=== PATIENT | male | born 1960 | race African-American/Black ===

== ENCOUNTER 2017-03-13 18:21 | Emergency (ER) | payer MEDICAID, MEDICARE ==
[~2017-03-13] VITALS: Ht 190.5 cm; Wt 83.9 kg
[~2017-03-13 18:21] MED LIST: ALBUTEROL SULF8.5 GM INH; AZITHROMYCIN250 MG ORAL; BENTYL10 MG ORAL; CIPROFLOXACIN500 M2 ORAL; LEVEMIR100 UNIT/1 SUBQ; METRONIDAZOLE500 MG ORAL; PROMETHAZINE-D118 ML ORAL; ZOFRAN ODT4 MG ORAL
[2017-03-13 20:51] LABS: ALANINE AMINOTRANSFERASE 35 U/L (3-41); ALBUMIN/GLOBULIN RATIO 0.9 (1.0-2.7); ANION GAP 10 (5-15); ASPARTATE AMINO TRANSFERASE 45 U/L (5-40); CALCIUM 9.2 mg/dL (8.6-10.2); CARBON DIOXIDE 28 mEQ/L (20-30); CHLORIDE 103 mEQ/L (98-107); CREATININE 1.1 mg/dL (0.7-1.2); GLOMERULAR FILTRATION RATE > 60 mL/min (>60); HEMOLYSIS 33; POTASSIUM 4.6 mEQ/L (3.4-4.9); SODIUM 141 mEQ/L (135-145); TOTAL PROTEIN 6.9 g/dL (6.6-8.7)
[2017-03-13 21:13] LABS: APPEARANCE,URINE SLIGHTLY CLOUDY; KETONES,URINE NEGATIVE (NEGATIVE); LEUKOCYTE ESTERASE ,URINE 2+ (NEGATIVE); MEAN CORPUSCULAR HEMOGLOBIN 31.4 PG (27.0-31.0); MEAN CORPUSCULAR HGB CONC 34.7 G/DL (32.0-36.0); MEAN CORPUSCULAR VOLUME 90 FL (80-99); MEAN PLATELET VOLUME 6.4 FL (6.5-10.1); NITRITE,URINE NEGATIVE (NEGATIVE); PH,URINE 6 (4.5-8.0); PLATELET COUNT 64 K/UL (150-450); PROTEIN,URINE NEGATIVE (NEGATIVE); RED BLOOD COUNT 4.46 M/UL (4.70-6.10); RED CELL DISTRIBUTION WIDTH 13.2 % (11.6-14.8); UROBILINOGEN,URINE 4 MG/DL (0.0-1.0); WHITE BLOOD COUNT 3.5 K/UL (4.8-10.8)
[2017-03-13 21:17] LABS: BILIRUBIN,DIRECT 0.9 mg/dL (0.1-0.3)
[2017-03-13 21:19] LABS: NEUTROPHILS % (MANUAL) 50 % (45-75); TOTAL CELLS COUNTED 100
[2017-03-13 21:20] LABS: BASOPHILS % (MANUAL) 0 % (0-2); EOSINOPHILS % (MANUAL) 3 % (0-3); LYMPHOCYTES % (MANUAL) 35 % (20-45); PLATELET ESTIMATE DECREASED; PLATELET MORPHOLOGY NORMAL
[2017-03-13 21:21] LABS: RBC,URINE 0-2 /HPF (0 - 0)
[2017-03-13 21:25] LABS: BACTERIA,URINE MODERATE /HPF; ICTOTEST NEGATIVE; SQUAMOUS EPITHELIAL CELL,UR FEW /LPF (NONE/OCC); WBC,URINE 30-40 /HPF (0 - 0)
[2017-03-13 21:28] LABS: BAND NEUTROPHILS % (MANUAL) 0 % (0-8)
[2017-03-13] MEDS ORDERED: CIPROFLOXACIN500 M2 ORAL (21:48)
[2017-03-13 22:15] VITALS: BP 120/88
--- NOTE | 2017-03-13 22:36 | Emergency Room Report ---
History of Present Illness General Chief Complaint: General Complaint Source: Family Member Present Illness Allergies: Coded Allergies: No Known Allergies (Unverified , 01/09/12) Patient History Reviewed Nursing Documentation: PMH: Agreed, PSxH: Agreed Nursing Documentation-PMH Hx Diabetes: Yes Review of Systems All Other Systems: negative except mentioned in HPI Physical Exam Vital Signs Date Time Temp Pulse Resp B/P (MAP) Pulse Ox O2 Delivery O2 Flow Rate FiO2 03/13/17 18:24 97.9 101 18 111/74 98 Room Air Sp02 EP Interpretation: reviewed, normal General Appearance: no apparent distress, alert, GCS 15, non-toxic Head: normocephalic, atraumatic Eyes: bilateral eye normal inspection, bilateral eye PERRL ENT: hearing grossly normal, normal pharynx, no angioedema, normal voice Medical Decision Making PA Attestation Dr. Layne is my supervising physician. Patient management was discussed with my supervising physician Diagnostic Impression: Primary Impression: Urinary tract infection Qualified Codes: N30.00 - Acute cystitis without hematuria ER Course Differential diagnosis considered but not limited to: UTI, vaginitis, pyelonephritis, pyelonephrosis, PID, ectopic EKG Diagnostic Results EP Interpretation: NSR Rate: normal Rhythm: NSR - 82 ST Segments: no acute changes ASA given to the pt in ED: No PA Scribe Text EKG was reviewed and read with my supervising physician. No acute ST segment changes are seen. Normal rate and rhythm. No acute changes. Last Vital Signs Date Time Temp Pulse Resp B/P (MAP) Pulse Ox O2 Delivery O2 Flow Rate FiO2 03/13/17 22:15 88 18 128/88 99 Room Air 03/13/17 22:15 98.8 Status: improved Disposition: HOME, SELF-CARE Condition: Improved Scripts Ciprofloxacin Hcl* (CIPROFLOXACIN HCL*) 500 Mg Tablet 500 MG ORAL EVERY 12 HOURS, #14 TAB 0 Refills Prov: CHERIE LOUISE 03/13/17 Patient Instructions: Urinary Tract Infection Additional Instructions: I discussed my findings with the patient. All questions and concerns have been answered. Treatment and medication compliance have been addressed. I advised the patient that they need to follow up with primary doctor as soon as possible. Return to ED if symptoms worsen, new symptoms arise, or if needed for any reason. Patient verbalized understanding of discharge instructions. I have provided the lab results from this visit. Please give them to your primary doctor. CHERIE LOUISE Mar 13, 2017 22:36
--- NOTE | 2017-03-16 16:36 | Cardiology Report ---
APPROVED REPORT EKG Measurement Heart [id number] Normal sinus rhythm Normal ECG
== END 2017-03-13 22:15 | disposition home or self-care (01) ==
LOC: EMR 20:03
DX: N30.00 Acute cystitis without hematuria (principal); E11.9 Type 2 diabetes mellitus without complications
CPT/HCPCS: 36415; 80053; 80300; 81003; 82248; 82962; 85007; 85025; 87086; 93005; 99284

== ENCOUNTER 2017-07-04 16:22 | Emergency (ER) | payer MEDICARE, OTHER ==
[~2017-07-04] VITALS: Ht 193 cm; Wt 83.9 kg
[2017-07-04] MEDS ORDERED: UNOBMED (17:14)
[2017-07-04] MEDS ORDERED: TRUVADA 200 MG1 EAC1 ORAL (17:14)
[2017-07-04] MEDS ORDERED: Acetaminophen 500mg (ES) tab ORAL ONE (17:45)
[2017-07-04] MEDS ORDERED: NORCO 5-325 TA1 EACH ORAL (18:49)
[2017-07-04 19:18] VITALS: BP 108/30
--- NOTE | 2017-07-05 09:43 | Emergency Room Report ---
History of Present Illness General Chief Complaint: Lower Extremity Injury Source: Patient Present Illness HPI Presented [id number] male who presented after increased left foot pain. Patient gradual onset of symptoms. Patient stated he had injured his left foot. He had been ambulatory but had noticed increased pain and swelling to the lateral aspect of his left foot. He denies any numbness or tingling. He states that he is taking medications for HIV. He denies any recent fever. Allergies: Coded Allergies: No Known Allergies (Unverified , 01/09/12) Patient History Reviewed Nursing Documentation: PMH: Agreed, PSxH: Agreed Nursing Documentation-PMH Hx Diabetes: Yes Review of Systems All Other Systems: negative except mentioned in HPI Physical Exam Vital Signs Date Time Temp Pulse Resp B/P (MAP) Pulse Ox O2 Delivery O2 Flow Rate FiO2 07/04/17 17:09 97.7 89 19 108/30 97 Room Air General Appearance: well appearing, no apparent distress, alert, GCS 15 Head: normocephalic, atraumatic ENT: hearing grossly normal, normal voice Neck: full range of motion, supple Respiratory: no respiratory distress, speaking full sentences Cardiovascular #1: normal inspection, regular rate, rhythm Gastrointestinal: normal inspection Musculoskeletal: back normal, no calf tenderness, swelling - swelling and tenderness to left foot, no erythema or bruising noted Neurologic: normal inspection, alert, oriented x3, normal gait Psychiatric: mood/affect normal Skin: no rash Medical Decision Making Diagnostic Impression: Primary Impression: Foot fracture, left ER Course Patient presented for foot pain. Differential diagnoses include was was not limited to cellulitis, foreign body, fracture, plantar fasciitis, vascular insufficiency, sprain. X-ray imaging of the left foot previous interpreted by me showed a fracture to the fifth metatarsal. The patient was placed in a posterior splint. He is advised followup with orthopedics. He was given prescription for pain medications.The patient is advised to follow up with primary care doctor in 1-2 days for orthopedic referral. Patient is advised to return if any worsening condition or if any changes in status that are concerning. This report is dictated with [employer] agriculture manager software which may occasionally lead to discrepancies related to use of this software. Last Vital Signs Date Time Temp Pulse Resp B/P (MAP) Pulse Ox O2 Delivery O2 Flow Rate FiO2 07/04/17 19:18 97.7 78 19 108/30 97 Room Air Status: improved Disposition: HOME, SELF-CARE Condition: Stable Scripts Hydrocodone Bit/Acetaminophen 5-325* (NORCO 5-325*) 1 Each Tablet 1 TAB ORAL Q6H Y for For Pain, #20 TAB 0 Refills Prov: Navin Estes 07/04/17 Patient Instructions: Metatarsal Fracture Navin Estes Jul 05, 2017 09:43
--- NOTE | 2017-07-05 12:26 | Diagnostic Imaging Report ---
Indication: Pain Comparison: None Findings: 3 views of the left foot were obtained. There is a fracture at the base of the fifth metatarsal, nondisplaced. Bones are osteopenic. IMPRESSION: Suspected acute fracture base of the fifth metatarsal. Please correlate clinically.
== END 2017-07-04 19:18 | disposition home or self-care (01) ==
LOC: EMR 17:48
DX: S92.355A Nondisplaced fracture of fifth metatarsal bone, left foot, initial encounter for closed fracture (principal); W19.XXXA Unspecified fall, initial encounter; Y92.480 Sidewalk as the place of occurrence of the external cause
CPT/HCPCS: 99283

== ENCOUNTER 2017-09-06 | Emergency (ER) | payer MEDICARE, OTHER ==
[~2017-09-06] VITALS: Ht 190.5 cm; Wt 83.9 kg
[~2017-09-06] MED LIST changes: +NORCO 5-325 TA1 EACH ORAL; +TRUVADA 200 MG1 EAC1 ORAL; +UNOBMED
--- NOTE | 2017-09-06 00:34 | Emergency Room Report ---
History of Present Illness General Chief Complaint: Lower Extremity Injury Source: Patient Present Illness HPI Is a 56-year-old male with a previous left foot fracture in June. He presents with chief complaint of left foot injury and pain. He said 2 to 3 days ago he stepped down and felt pain shooting up his ankle. He said is some swelling laterally. Swelling went down out. Pain is 7/10. No trauma. Pain is throbbing in nature. No radiation. Allergies: Coded Allergies: No Known Allergies (Unverified , 01/09/12) Patient History Past Medical History: see triage record, old chart reviewed Past Surgical History: other Pertinent Family History: none Social History: Denies: drug use Immunizations: other Reviewed Nursing Documentation: PMH: Agreed, PSxH: Agreed Nursing Documentation-PMH Hx Diabetes: Yes Review of Systems Eye: Denies: eye pain, blurred vision ENT: Denies: ear pain, nose congestion, throat swelling Respiratory: Denies: cough, shortness of breath Cardiovascular: Denies: chest pain, palpitations Gastrointestinal: Denies: abdominal pain, diarrhea, nausea, vomiting Musculoskeletal: Reports: joint pain, Denies: back pain Skin: Denies: rash Neurological: Denies: headache, numbness Endocrine: Denies: increased thirst, increased urine Hematologic/Lymphatic: Denies: easy bruising All Other Systems: negative except mentioned in HPI Physical Exam Vital Signs Date Time Temp Pulse Resp B/P (MAP) Pulse Ox O2 Delivery O2 Flow Rate FiO2 09/06/17 00:08 98.0 96 18 127/84 97 Room Air 98.1 vitals normal Sp02 EP Interpretation: reviewed, normal General Appearance: well appearing, no apparent distress, alert Head: normocephalic, atraumatic Eyes: bilateral eye PERRL, bilateral eye EOMI ENT: hearing grossly normal, normal pharynx Neck: full range of motion, supple, no meningismus Respiratory: chest non-tender, lungs clear, normal breath sounds Cardiovascular #1: regular rate, rhythm, no murmur Gastrointestinal: normal bowel sounds, non tender, no mass, no organomegaly, no bruit, non-distended Musculoskeletal: back normal, gait/station normal, normal range of motion, other - Left foot: His flat-footed. Tenderness over the base of the fifth metatarsal. No edema. Ankle stable. Sensation normal. Psychiatric: mood/affect normal Skin: warm/dry Procedures Splinting Splinting : Consent: Verbal Location: Left ankle Pre-Made Type: YASSINE wrap Pre-Proc Neuro Vasc Exam: normal Post-Proc Neuro Vasc Exam: normal Patient Tolerated: Well Complications: None Medical Decision Making Diagnostic Impression: Primary Impression: Left ankle sprain Qualified Codes: S93.402A - Sprain of unspecified ligament of left ankle, initial encounter ER Course Patient with a left ankle sprain. No fracture dislocation. We'll discharge home after splinting. Other X-Ray Diagnostic Results Other X-Ray Diagnostic Results : X-Ray ordered: Left ankle x-r # of Views/Limited Vs Complete: 3 View Indication: Pain EP Interpretation: Yes Interpretation: no dislocation, no soft tissue swelling, no fractures, other - osteopenia. old 5th MT bone frx. Impression: No acute disease Electronically Signed by: Al Arevalo MD Last Vital Signs Date Time Temp Pulse Resp B/P (MAP) Pulse Ox O2 Delivery O2 Flow Rate FiO2 09/06/17 00:08 98.0 96 18 127/84 97 Room Air 98.1 Status: improved Disposition: HOME, SELF-CARE Condition: Stable Scripts Ibuprofen* (MOTRIN*) 600 Mg Tablet 600 MG ORAL THREE TIMES A DAY, #30 TAB 0 Refills Prov: AL AREVALO M.D. 09/06/17 Patient Instructions: Ankle Sprain Additional Instructions: Followup with your DrRichard in 7 days. Return if worse. AL AREVALO M.D. Sep 06, 2017 00:34
[2017-09-06] MEDS ORDERED: IBUPROFEN600 MG ORAL (01:02)
[2017-09-06 01:10] VITALS: BP 127/84
--- NOTE | 2017-09-06 10:07 | Diagnostic Imaging Report ---
Indication: Pain Comparison: None Findings: 3 views of the left foot were obtained. No acute fractures, malalignment, erosions or periostitis are identified. Bones are osteopenic. There is narrowing of the first MTP joint with marginal spur formation. Soft tissues are unremarkable. Impression: No acute findings
== END 2017-09-06 07:00 | disposition home or self-care (01) ==
LOC: EMR 00:39
DX: S93.402A Sprain of unspecified ligament of left ankle, initial encounter (principal); W19.XXXA Unspecified fall, initial encounter; Y92.9 Unspecified place or not applicable; E11.9 Type 2 diabetes mellitus without complications
CPT/HCPCS: 29540; 99283

== ENCOUNTER 2017-11-30 23:54 | Emergency (ER) | payer MEDICARE, OTHER ==
[~2017-11-30] VITALS: Ht 190.5 cm; Wt 83.9 kg
[~2017-11-30 23:54] MED LIST changes: +IBUPROFEN600 MG ORAL
[2017-12-01] MEDS ORDERED: TRUVADA 200 MG1 EAC1 ORAL (00:04)
[2017-12-01] MEDS ORDERED: NOVOLIN R100 UNIT/1 SUBQ (00:04)
[2017-12-01] MEDS ORDERED: METFORMIN HCL500 M1 ORAL (00:04)
--- NOTE | 2017-12-01 00:23 | Emergency Room Report ---
History of Present Illness General Chief Complaint: Generalized Weakness Source: Patient Present Illness HPI Patient is a 56-year-old male who presented after increased abdominal discomfort as well as increased abdominal pain. Patient gradual onset of symptoms. Associated the loose stools. He reports prior history of HIV and states that he's been having increased gas and bloating. The patient states is also type II diabetic. He states he does not regularly check his blood sugars. Allergies: Coded Allergies: No Known Allergies (Unverified , 12/01/17) Patient History Past Medical History: see triage record Reviewed Nursing Documentation: PMH: Agreed; PSxH: Agreed Nursing Documentation-PMH Hx Diabetes: Yes Review of Systems All Other Systems: negative except mentioned in HPI Physical Exam Vital Signs Date Time Temp Pulse Resp B/P (MAP) Pulse Ox O2 Delivery O2 Flow Rate FiO2 11/30/17 23:57 98.4 104 16 118/70 96 Room Air 98.4 Sp02 EP Interpretation: reviewed, normal General Appearance: normal inspection, well appearing, no apparent distress, alert, GCS 15, thin, Chronically Ill Head: atraumatic ENT: normal ENT inspection, hearing grossly normal, normal voice Neck: normal inspection, full range of motion, supple, no bony tend Respiratory: normal inspection, lungs clear, normal breath sounds, no respiratory distress, no retraction, no wheezing Cardiovascular #1: regular rate, rhythm, no edema Gastrointestinal: normal inspection, normal bowel sounds, non tender, soft, no guarding, no hernia Genitourinary: no CVA tenderness Musculoskeletal: normal inspection, back normal, normal range of motion Neurologic: normal inspection, alert, oriented x3, responsive, lemon grower III-XII nml as tested, speech normal Psychiatric: normal inspection, judgement/insight normal, mood/affect normal Skin: normal inspection, normal color, no rash Medical Decision Making Diagnostic Impression: Primary Impression: Proctocolitis ER Course Patient presented for abdominal pain. Differential diagnoses included ischemic bowel, appendicitis, perforated viscus, abdominal aortic aneurysm, inferior myocardial infarction, viral gastroenteritis. Because of complexity of patient' s case laboratory testing and imaging studies were ordered. CT imaging read by radiology showed evidence of proctocolitis. The patient was given IV fluids. He was given pain medications with improvement.The patient was given prescription for antibiotics. Patient was offered admission however he stated he wanted to go home.The patient is advised to follow up with primary care doctor in 1-2 days. Patient is advised to return if any worsening condition or if any changes in status that are concerning. This report is dictated with [employer] oven worker software which may occasionally lead to discrepancies related to use of this software. Labs Test 12/01/17 00:43 12/01/17 01:23 White Blood Count 3.5 K/UL (4.8-10.8) Red Blood Count 4.69 M/UL (4.70-6.10) Hemoglobin 14.2 G/DL (14.2-18.0) Hematocrit 40.7 % (42.0-52.0) Mean Corpuscular Volume 87 FL (80-99) Mean Corpuscular Hemoglobin 30.3 PG (27.0-31.0) Mean Corpuscular Hemoglobin Concent 34.9 G/DL (32.0-36.0) Red Cell Distribution Width 11.9 % (11.6-14.8) Platelet Count 81 K/UL (150-450) Mean Platelet Volume 6.6 FL (6.5-10.1) Neutrophils (%) (Auto) % (45.0-75.0) Lymphocytes (%) (Auto) % (20.0-45.0) Monocytes (%) (Auto) % (1.0-10.0) Eosinophils (%) (Auto) % (0.0-3.0) Basophils (%) (Auto) % (0.0-2.0) Prothrombin Time 12.1 SEC (9.30-11.50) Prothromb Time International Ratio 1.2 (0.9-1.1) Activated Partial Thromboplast Time 32 SEC (23-33) Sodium Level 133 MMOL/L (136-145) Potassium Level 4.1 MMOL/L (3.5-5.1) Chloride Level 101 MMOL/L (98-107) Carbon Dioxide Level 28 MMOL/L (21-32) Anion Gap 4 mmol/L (5-15) Blood Urea Nitrogen 11 mg/dL (7-18) Creatinine 1.4 MG/DL (0.55-1.30) Estimat Glomerular Filtration Rate > 60 mL/min (>60) Glucose Level 380 MG/DL (74-106) Calcium Level 8.6 MG/DL (8.5-10.1) Total Bilirubin 1.3 MG/DL (0.2-1.0) Direct Bilirubin 0.6 MG/DL (0.0-0.3) Aspartate Amino Transf (AST/SGOT) 46 U/L (15-37) Alanine Aminotransferase (ALT/SGPT) 52 U/L (12-78) Alkaline Phosphatase 216 U/L (46-116) Total Protein 7.1 G/DL (6.4-8.2) Albumin 2.7 G/DL (3.4-5.0) Globulin 4.4 g/dL Albumin/Globulin Ratio 0.6 (1.0-2.7) Lipase 271 U/L (73-393) Urine Color Pale yellow Urine Appearance Clear Urine pH 6.5 (4.5-8.0) Urine Specific Willard 1.005 (1.005-1.035) Urine Protein Negative (NEGATIVE) Urine Glucose (UA) 4+ (NEGATIVE) Urine Ketones Negative (NEGATIVE) Urine Occult Blood Negative (NEGATIVE) Urine Nitrite Negative (NEGATIVE) Urine Bilirubin Negative (NEGATIVE) Urine Urobilinogen 4 MG/DL (0.0-1.0) Urine Leukocyte Esterase Negative (NEGATIVE) Last Vital Signs Date Time Temp Pulse Resp B/P (MAP) Pulse Ox O2 Delivery O2 Flow Rate FiO2 11/30/17 23:57 98.4 104 16 118/70 96 Room Air 98.4 Status: improved Disposition: HOME, SELF-CARE Condition: Stable Scripts Dicyclomine Hcl* (DICYCLOMINE HCL*) 10 Mg Capsule 10 MG PO QID, #30 CAP Prov: Navin Estes MD 12/01/17 Ciprofloxacin Hcl* (CIPROFLOXACIN HCL*) 500 Mg Tablet 500 MG ORAL Q12H, #14 TAB 0 Refills Prov: Navin Estes MD 12/01/17 Metronidazole* (FLAGYL*) 500 Mg Tablet 500 MG ORAL BID, #14 TAB Prov: Navin Estes MD 12/01/17 Navin Estes MD December 01, 2017 00:23
[2017-12-01 01:08] LABS: HEMATOCRIT 40.7 % (42.0-52.0); HEMOGLOBIN 14.2 G/DL (14.2-18.0); MEAN CORPUSCULAR VOLUME 87 FL (80-99); PLATELET COUNT 81 K/UL (150-450); RED BLOOD COUNT 4.69 M/UL (4.70-6.10); RED CELL DISTRIBUTION WIDTH 11.9 % (11.6-14.8); WHITE BLOOD COUNT 3.5 K/UL (4.8-10.8)
[2017-12-01 01:13] LABS: ANION GAP 4 mmol/L (5-15); BLOOD UREA NITROGEN 11 mg/dL (7-18); CALCIUM 8.6 MG/DL (8.5-10.1); CARBON DIOXIDE 28 MMOL/L (21-32); CHLORIDE 101 MMOL/L (98-107); CREATININE 1.4 MG/DL (0.55-1.30); POTASSIUM 4.1 MMOL/L (3.5-5.1); SODIUM 133 MMOL/L (136-145)
[2017-12-01 01:15] LABS: INR 1.2 (0.9-1.1)
[2017-12-01 01:20] VITALS: BP 127/76
[2017-12-01 01:23] LABS: ALANINE AMINOTRANSFERASE 52 U/L (12-78); ALBUMIN 2.7 G/DL (3.4-5.0); ALBUMIN/GLOBULIN RATIO 0.6 (1.0-2.7); ALKALINE PHOSPHATASE 216 U/L (46-116); ASPARTATE AMINO TRANSFERASE 46 U/L (15-37); BILIRUBIN,TOTAL 1.3 MG/DL (0.2-1.0)
[2017-12-01 01:33] LABS: BILIRUBIN,DIRECT 0.6 MG/DL (0.0-0.3)
[2017-12-01 01:37] LABS: APPEARANCE,URINE CLEAR; BILIRUBIN, URINE NEGATIVE (NEGATIVE); COLOR,URINE PALE YELLOW; GLUCOSE, URINE (UA) 4+ (NEGATIVE); KETONES,URINE NEGATIVE (NEGATIVE); LEUKOCYTE ESTERASE ,URINE NEGATIVE (NEGATIVE); NITRITE,URINE NEGATIVE (NEGATIVE); PH,URINE 6.5 (4.5-8.0); PROTEIN,URINE NEGATIVE (NEGATIVE); UROBILINOGEN,URINE 4 MG/DL (0.0-1.0)
[2017-12-01] MEDS ORDERED: Isovue-300 100ml vial INJ PRN (02:30)
[2017-12-01] MEDS ORDERED: METRONIDAZOLE500 MG ORAL (03:57)
[2017-12-01] MEDS ORDERED: CIPROFLOXACIN500 M2 ORAL (03:57)
[2017-12-01] MEDS ORDERED: DICYCLOMINE HCL10 MG PO (03:57)
[2017-12-01 04:15] VITALS: BP 119/68
--- NOTE | 2017-12-01 09:42 | Diagnostic Imaging Report ---
Indication: Abdominal pain Technique: Continuous helical transaxial imaging of the abdomen and pelvis was obtained from the lung bases to the pubic symphysis during intravenous contrast administration. Coronal 2-D reformats were also obtained. Study obtained in a Siemens sensation [address] Automatic Exposure Control was utilized. Total Dose length Product (DLP): 711.[address] Dose Index Volume (CTDIvol): 12.77 mGy Comparison: 10/23/2015 Findings: There is posterior basilar atelectasis demonstrated. Pneumonia is not excluded. Correlate clinically. The spleen is markedly enlarged. There is suggestion of portosystemic varices. The splenic vein is enlarged and tortuous. There is a spontaneous splenorenal shunt. These are all signs of portal hypertension. There is nodularity of the liver. Gallstones are present. There is a moderate amount of formed stool distending the colon and rectum. There is thickening of the wall of the sigmoid colon and rectum. The urinary bladder is unremarkable. There is no ascites. Aorta is mildly calcified. The appendix is normal. IMPRESSION: Chronic liver disease/cirrhosis with stigmata of portal hypertension including splenomegaly and portosystemic varices. Gallstones. Moderate fecal impaction and evidence of proctocolitis. Other incidental findings as above [facility] has communicated the preliminary results to the Emergency Department. Their findings are largely concordant with this report. The CT scanner at [facility] is accredited by the [employer] and the scans are performed using dose optimization techniques as appropriate to a performed exam including Automatic Exposure control.
== END 2017-12-01 04:15 | disposition home or self-care (01) ==
LOC: EMR 12-01 00:33
DX: K51.30 Ulcerative (chronic) rectosigmoiditis without complications (principal); E11.9 Type 2 diabetes mellitus without complications; K80.20 Calculus of gallbladder without cholecystitis without obstruction; K74.60 Unspecified cirrhosis of liver; K76.6 Portal hypertension; R16.1 Splenomegaly, not elsewhere classified; K56.41 Fecal impaction
CPT/HCPCS: 36415; 74177; 80053; 81003; 82248; 82962; 83690; 85025; 85610; 85730; 96374; 96375; 99284; J2405; Q9967

== ENCOUNTER 2018-08-18 00:55 | Emergency (ER) | payer MEDICARE, OTHER ==
[~2018-08-18] VITALS: Ht 188 cm; Wt 83.9 kg
[~2018-08-18 00:55] MED LIST changes: +DICYCLOMINE HCL10 MG PO; +METFORMIN HCL500 M1 ORAL; +NOVOLIN R100 UNIT/1 SUBQ
[2018-08-18] MEDS ORDERED: IBUPROFEN600 MG ORAL (01:52)
[2018-08-18 02:00] VITALS: BP 117/73
--- NOTE | 2018-08-18 04:42 | Emergency Room Report ---
History of Present Illness General Chief Complaint: Lower Extremity Injury Source: Patient Present Illness HPI 57-year-old male presents ED for evaluation. Presenting with big toe pain and bruising. States he accidentally kicked a door yesterday. Pain is throbbing, 10 out of 10, nonradiating. Denies any other injuries. Able to bear weight. No other aggravating relieving factors. Denies any other associated symptoms Allergies: Coded Allergies: No Known Allergies (Unverified , 12/01/17) Patient History Past Medical History: DM Past Surgical History: none Pertinent Family History: none Social History: Denies: smoking, alcohol use, drug use Immunizations: UTD Reviewed Nursing Documentation: PMH: Agreed; PSxH: Agreed Nursing Documentation-PMH Past Medical History: No History, Except For Hx Diabetes: Yes Review of Systems All Other Systems: negative except mentioned in HPI Physical Exam Vital Signs Date Time Temp Pulse Resp B/P (MAP) Pulse Ox O2 Delivery O2 Flow Rate FiO2 08/18/18 01:04 98.2 122 16 117/73 98 Room Air Sp02 EP Interpretation: reviewed, normal General Appearance: no apparent distress, alert, GCS 15, non-toxic Head: normocephalic Eyes: bilateral eye normal inspection, bilateral eye PERRL ENT: normal ENT inspection Neck: normal inspection Respiratory: normal inspection Cardiovascular #1: normal inspection Gastrointestinal: normal inspection Rectal: deferred Genitourinary: no CVA tenderness Musculoskeletal: tender - bruising, TTP R big toe Neurologic: alert, oriented x3, responsive, motor strength/tone normal, sensory intact, speech normal Psychiatric: normal inspection Skin: normal inspection Lymphatic: normal inspection Procedures Splinting Splinting : Consent: Verbal Pre-Made Type: brandy tape Splint: cast shoe Pre-Proc Neuro Vasc Exam: normal Post-Proc Neuro Vasc Exam: normal Patient Tolerated: Well Complications: None Medical Decision Making Diagnostic Impression: Primary Impression: Toe fracture Qualified Codes: S92.424A - Nondisplaced fracture of distal phalanx of right great toe, initial encounter for closed fracture ER Course Hospital Course 57-year-old M presents to ED complaining of R big toe pain/bruising Differential diagnoses include: Fracture, dislocation, sprain, contusion Clinical course Patient placed on stretcher. After initial history and physical, I ordered pain medications and Xrays of R foot Xrays prelim read shows evidence of fracture to the distal aspect of the right big toe. Nondisplaced. Brandy taped. Placed in cast shoe. Discussed findings with patient. Safe for discharge or close outpatient follow-up. We'll provide ortho referrals Diagnosis - toe fracture Stable and discharged to home with prescription for Motrin. apply ice, keep elevated. weight bear as tolerated. Followup with ortho. Return to ED if symptoms recur or worsen Other X-Ray Diagnostic Results Other X-Ray Diagnostic Results : X-Ray ordered: R foot # of Views/Limited Vs Complete: 3 View Indication: Pain EP Interpretation: Yes Interpretation: no dislocation, no soft tissue swelling, other - fx distal R big toe Impression: Other - fx Electronically Signed by: Electronically signed by Abelardo Durán MD Last Vital Signs Date Time Temp Pulse Resp B/P (MAP) Pulse Ox O2 Delivery O2 Flow Rate FiO2 08/18/18 02:00 98.2 16 117/73 98 Room Air 08/18/18 01:04 122 Status: improved Disposition: HOME, SELF-CARE Condition: Stable Scripts Ibuprofen* (MOTRIN*) 600 Mg Tablet 600 MG ORAL Q8H PRN for For Pain, #30 TAB 0 Refills Prov: Abelardo Durán MD 08/18/18 Patient Instructions: Toe Fracture, [id number] Additional Instructions: Orthopedic urgent care: [address] [facility] [address] [place] [address] email: ana Abelardo Durán MD Aug 18, 2018 04:42
--- NOTE | 2018-08-18 10:05 | Diagnostic Imaging Report ---
Indication: Foot Pain Comparison: None Findings: 3 views of the right foot were obtained. No acute fractures, malalignment, erosions or periostitis are identified. Bones are osteopenic. Soft tissues are unremarkable. Impression: No acute findings.
== END 2018-08-18 02:00 | disposition home or self-care (01) ==
LOC: EMR 01:24
DX: S92.424A Nondisplaced fracture of distal phalanx of right great toe, initial encounter for closed fracture (principal); W22.8XXA Striking against or struck by other objects, initial encounter; Y92.89 Other specified places as the place of occurrence of the external cause; E11.9 Type 2 diabetes mellitus without complications
CPT/HCPCS: 99283

== ENCOUNTER 2018-09-19 17:16 | Emergency (ER) | payer MEDICARE, OTHER ==
[~2018-09-19] VITALS: Ht 188 cm; Wt 79.4 kg
[2018-09-19 17:19] VITALS: BP 124/85
--- NOTE | 2018-09-19 17:29 | NUR ---
ED Nurse Note: Pt came in due to abd pain wtih Nausea, Vomiting and diarrhea x4 days. Denies blood in the stool but with decreased appetite. Pt is AAO x4, ambulatory with unlabored breathing.
[2018-09-19] MEDS ORDERED: Morphine Sulfate 4mg/ml Inj (IV USE ONLY) IVP ONE (18:00)
--- NOTE | 2018-09-19 18:13 | NUR ---
ED Nurse Note: Collected blood and sent.
[2018-09-19 18:36] LABS: HEMATOCRIT 45.9 % (42.0-52.0); HEMOGLOBIN 15.3 G/DL (14.2-18.0); MEAN CORPUSCULAR VOLUME 89 FL (80-99); PLATELET COUNT 95 K/UL (150-450); RED BLOOD COUNT 5.16 M/UL (4.70-6.10); WHITE BLOOD COUNT 4.2 K/UL (4.8-10.8)
[2018-09-19 18:46] LABS: ANION GAP 9 mmol/L (5-15); BLOOD UREA NITROGEN 15 mg/dL (7-18); CALCIUM 9.1 MG/DL (8.5-10.1); CARBON DIOXIDE 25 MMOL/L (21-32); CHLORIDE 105 MMOL/L (98-107); POTASSIUM 4.1 MMOL/L (3.5-5.1); SODIUM 139 MMOL/L (136-145)
--- NOTE | 2018-09-19 18:49 | NUR ---
ED Nurse Note: Collected urine and sent.
[2018-09-19 19:02] LABS: APPEARANCE,URINE CLEAR; BILIRUBIN, URINE NEGATIVE (NEGATIVE); COLOR,URINE PALE YELLOW; GLUCOSE, URINE (UA) 4+ (NEGATIVE); KETONES,URINE NEGATIVE (NEGATIVE); LEUKOCYTE ESTERASE ,URINE NEGATIVE (NEGATIVE); NITRITE,URINE NEGATIVE (NEGATIVE); PH,URINE 6 (4.5-8.0); PROTEIN,URINE NEGATIVE (NEGATIVE); UROBILINOGEN,URINE 1 MG/DL (0.0-1.0)
[2018-09-19 19:06] LABS: ALANINE AMINOTRANSFERASE 49 U/L (12-78); ALBUMIN 2.9 G/DL (3.4-5.0); ALBUMIN/GLOBULIN RATIO 0.7 (1.0-2.7); ALKALINE PHOSPHATASE 263 U/L (46-116); ASPARTATE AMINO TRANSFERASE 46 U/L (15-37); BILIRUBIN,TOTAL 1.5 MG/DL (0.2-1.0)
[2018-09-19 19:07] LABS: BILIRUBIN,DIRECT 0.7 MG/DL (0.0-0.3)
--- NOTE | 2018-09-19 19:15 | NUR ---
HAND-OFF: Report given to Micki HERRERA.
--- NOTE | 2018-09-19 19:40 | NUR ---
ED Nurse Note: RECIEVED REPORT TO RESUME CARE, PT IN BED RESTING QUIETLY, IV FLUIDS COMPLETED, TOLERATED WELL, SITE INTACT AND PATENT, PT REMAINS WITH ABDOMINAL PAIN, STATES IS BETTER BUT RATES AT 8/10, DENEIS CP, SOB, OR ANY OTHER COMPLAITNS OR DISCOMFORTS, WILLR ESUME CARE ORDERED, MD AWARE OF PT PAIN LEVEL.
[2018-09-19 19:45] VITALS: BP 126/79
[2018-09-19] MEDS ORDERED: ZOFRAN4 MG ORAL (20:05)
[2018-09-19] MEDS ORDERED: LEVAQUIN750 MG ORAL (20:05)
[2018-09-19] MEDS ORDERED: Levofloxacin 500mg tab ORAL ONE (20:15)
[2018-09-19 20:25] VITALS: BP 126/79
--- NOTE | 2018-09-19 20:25 | NUR ---
ED Nurse Note: PT BEING D/C TO HOME, PT IS AAKE, ALERT AND ORIENTED X 4, AMBULATORY WITH STEADY GAIT, NO CP, NO SOB, PT GIVEN F/U INFO, AFTER CARE INSTRUCTIONS AND RE Addendum: 09/19/18 at 2028 by [facility] ED Nurse Note: PT BEING D/C TO HOME, AWAKE, ALERT AND ORIENTD X 4, AMBULATORY WITH STEADY GAIT, NO CP, NO SOB, PT WITH FRIENDS TO DRIVE HIM, PT GIVEN F/U INFO, AFTER CARE INSTRUCTIONS AND RE-VERBALIZES PROPER MEDICATION ADMINISTRATION, ARMBAND AND IV LINE REMOVED WITHOUT COMPLICATIONS, NAD NOTED DURING D/C TO HOME.
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
--- NOTE | 2018-09-21 09:31 | Diagnostic Imaging Report ---
Indication: Abdominal pain, nausea, vomiting, diarrhea 4 days Technique: Spiral acquisitions obtained through the abdomen and pelvis. No oral contrast utilized, per emergency room physician request No IV contrast utilized, per referring physician request.. Multiplanar reconstructions were generated. Total dose length product 652.37 mGycm. CTDIvol(s) 11.42 mGy. Dose reduction achieved using automated exposure control Comparison: 12/01/2017 Findings: Appendix is normal. No evidence of diverticulosis or diverticulitis. Small bowel is diffusely mildly prominent in caliber although not frankly distended, possibly fluid-filled. No free or loculated intraperitoneal gas or fluid is evident. Distal esophagus, stomach, duodenum are unremarkable. Lack of IV contrast limits assessment of the solid organs. The liver demonstrates surface nodularity, consistent with cirrhotic change. No focal abnormality. The gallbladder again demonstrates multiple gallstones. No biliary ductal dilatation. The pancreas is unremarkable. The spleen is enlarged, measuring 17 cm long axis dimension. Splenic hilar, splenorenal shunt type, and perigastric varices are noted. It contains a calcification. The adrenals are unremarkable. The kidneys are unremarkable. No retroperitoneal or mesenteric mass or adenopathy. No pelvic mass or adenopathy. Prostate contains a calcification. Bladder is unremarkable. The included lung bases demonstrate some dependent atelectatic changes on the right. The bones demonstrate degenerative changes of the lumbosacral junction. Impression: Mildly prominent small bowel loops, could be baseline for this patient or could be related to stated clinical history of diarrheal illness No acute process otherwise Evidence of hepatic cirrhosis, also previously described Evidence of portal hypertension, with splenomegaly and varices Cholelithiasis, also previously reported Right basilar pulmonary atelectatic changes Incidental findings as noted, including degenerative lumbosacral spondylosis, granulomatous calcification within the spleen This agrees with the preliminary interpretation provided overnight by [facility] teleradiology service. The CT scanner at [facility] is accredited by the [employer] and the scans are performed using protocols designed to limit radiation exposure to as low as reasonably achievable to attain images of sufficient resolution adequate for diagnostic evaluation.
== END 2018-09-19 20:25 | disposition home or self-care (01) ==
LOC: EMR 18:41
DX: J18.9 Pneumonia, unspecified organism (principal); R11.2 Nausea with vomiting, unspecified; R19.7 Diarrhea, unspecified; E11.9 Type 2 diabetes mellitus without complications
CPT/HCPCS: 36415; 74176; 80053; 81003; 82248; 83690; 85007; 85025; 96361; 96374; 96375; 99284; J2270; J2405

== ENCOUNTER 2019-04-19 05:10 | Emergency (ER) | payer MEDICARE, OTHER ==
[~2019-04-19] VITALS: Ht 190.5 cm; Wt 81.6 kg
[~2019-04-19 05:10] MED LIST changes: +LEVAQUIN750 MG ORAL; +ZOFRAN4 MG ORAL
--- NOTE | 2019-04-19 05:22 | NUR ---
ED Nurse Note: Pt ambulated to ED from home c/o N/Dx 3days, denies vommiting, reports "stool is slimey" 6/10 epigastric pain, Pt is A&Ox4. VSS
[2019-04-19 05:24] VITALS: BP 141/91
[2019-04-19] MEDS ORDERED: Lidocaine 1% MPF 10mg/ml 5ml INJ ONE (05:30)
--- NOTE | 2019-04-19 05:31 | Emergency Room Report ---
History of Present Illness General Chief Complaint: Nausea, Vomiting, and Diarrhea Source: Patient Present Illness HPI Patient is a 58-year-old male presents after increased discharge from his rectal area. He reports having recent receptive sex and states that he had previously been notified that his partner had gonorrhea. A he reports having some lesion to his lip as well. He denies any fever. He had not been vomiting. He denies any other locations of discomfort at this time. He reports being HIV positive with normal CD4 count and cell counts. Allergies: Coded Allergies: No Known Allergies (Unverified , 12/01/17) Patient History Past Medical History: see triage record Reviewed Nursing Documentation: PMH: Agreed; PSxH: Agreed Nursing Documentation-PMH Past Medical History: No Stated History Hx Diabetes: Yes Review of Systems All Other Systems: negative except mentioned in HPI Physical Exam Vital Signs Date Time Temp Pulse Resp B/P (MAP) Pulse Ox O2 Delivery O2 Flow Rate FiO2 04/19/19 05:12 97.9 109 18 141/91 (108) 97 Room Air Sp02 EP Interpretation: reviewed, normal General Appearance: normal inspection, well appearing, no apparent distress, alert, GCS 15, non-toxic Head: atraumatic Eyes: bilateral eye other - Disconjugate gaze ENT: normal ENT inspection, hearing grossly normal, normal voice, other - Lip small lesion to the lower lip warty in appearance Neck: normal inspection, full range of motion, supple, no bony tend Respiratory: normal inspection, lungs clear, normal breath sounds, no respiratory distress, no retraction, no wheezing Cardiovascular #1: regular rate, rhythm, no edema Gastrointestinal: normal inspection, normal bowel sounds, non tender, soft Genitourinary: no CVA tenderness Musculoskeletal: normal inspection, back normal, normal range of motion Neurologic: normal inspection, alert, oriented x3, responsive, speech normal Psychiatric: normal inspection, judgement/insight normal, mood/affect normal Medical Decision Making Diagnostic Impression: Primary Impression: Proctitis ER Course Patient presented for increased rectal discomfort and rectal effluent. He reports having recent STD exposure. Differential diagnosis include was not limited to gastroenteritis, proctitis, gonorrhea among others. Patient has a benign exam and does not appear to require any imaging or laboratory testing at this time. Patient appears to have some prior history of HIV and is currently followed by infectious disease. He was also noted to have some oral lesion which appears to be a wart. Patient was advised to follow-up with his infectious disease doctor for reevaluation and further STD testing. He was given prescription for doxycycline as well as IM Rocephin. Patient was advised to return if any worsening condition or other concerns. Last Vital Signs Date Time Temp Pulse Resp B/P (MAP) Pulse Ox O2 Delivery O2 Flow Rate FiO2 04/19/19 05:24 97.9 18 141/91 97 Room Air 04/19/19 05:12 109 Status: improved Disposition: HOME, SELF-CARE Condition: Stable Scripts Doxycycline Monohydrate* (DOXYCYCLINE MONOHYDRATE*) 100 Mg Capsule 100 MG ORAL Q12H, #20 CAP 0 Refills Prov: Navin Estes MD 04/19/19 Navin Estes MD Apr 19, 2019 05:31
[2019-04-19] MEDS ORDERED: DOXYCYCLINE MO100 MG ORAL (05:47)
[2019-04-19 06:00] VITALS: BP 141/91
--- NOTE | 2019-04-19 06:00 | NUR ---
ER DISCHARGE NOTE: Patient is cleared to be discharged per ERMD, pt is aox4, on room air, with stable vital signs. pt was given dc and prescription instructions, pt was able to verbalize understanding, pt id band removed. pt is able to ambulate with steady gait. pt took all belongings.
== END 2019-04-19 06:00 | disposition home or self-care (01) ==
LOC: EMR 05:31
DX: K62.89 Other specified diseases of anus and rectum (principal); E11.9 Type 2 diabetes mellitus without complications; B20 Human immunodeficiency virus [HIV] disease; L98.9 Disorder of the skin and subcutaneous tissue, unspecified
CPT/HCPCS: 96372; 96374; 99284; J0696